=== PATIENT | female | born 1995 | race Caucasian/White ===

== ENCOUNTER 2024-06-09 11:02 | Emergency (ER) | payer OTHER ==
[~2024-06-09] VITALS: Ht 170.2 cm; Wt 152.2 kg
[2024-06-09] MEDS ORDERED: DEBR6.5S4 OTIC (16:48)
[2024-06-09 16:53] VITALS: BP 144/95; TEMP 98.4; O2SAT 96
== END 2024-06-09 16:59 | disposition home or self-care (01) ==
LOC: EDUNIT# 11:02 → M ED 11:02 → EDBD 11:02 → M ED 16:59
DX: J09.X2 Influenza due to identified novel influenza A virus with other respiratory manifestations (principal); Z11.52 Encounter for screening for COVID-19; Z88.5 Allergy status to narcotic agent; F17.290 Nicotine dependence, other tobacco product, uncomplicated; F41.9 Anxiety disorder, unspecified; F32.A Depression, unspecified

== ENCOUNTER → 2024-12-24 | Outpatient (REF) | payer OTHER ==
[~2024-12-24] MED LIST: DEBR6.5S4 OTIC
[2024-12-24 19:18] LABS: ALT/SGPT 43 U/L (7.0-40); AST/SGOT 63 U/L (<34); CALCIUM LEVEL 8.7 MG/DL (8.5-10.1); CARBON DIOXIDE LEVEL 22 MMOL/L (20-31); CHLORIDE LEVEL 105 MMOL/L (98-107); CHOLESTEROL LEVEL 179 MG/DL (<200); CHOLESTEROL RISK RATIO 5.24 (<5); CREATININE FOR GFR 0.82 MG/DL (0.55-1.30); GLOMERULAR FILTRATION RATE > 90.0 (>60); LDL CHOLESTEROL 79.3 MG/DL (<100); NON-HDL-C 144.9 MG/DL; POTASSIUM SERUM 4.8 MMOL/L (3.5-5.1); SODIUM LEVEL 138 MMOL/L (136-145); TRIGLYCERIDES LEVEL 328 MG/DL (<150)
== END ==
LOC: M LAB REF 17:29
PROVIDERS: ATTEND Student in an Organized Health Care Education/Training Program
DX: Z00.00 Encounter for general adult medical examination without abnormal findings (principal)